=== PATIENT | female | born 1990 | race Caucasian/White ===

== ENCOUNTER 2021-12-10 14:02 | Emergency (ER) | payer OTHER ==
[2021-12-10 14:11] VITALS: PULSE 91; TEMP 99.1
[2021-12-10] MEDS ORDERED: SODIUM CHLORIDE 0.9% 1,000 ML IV STA (14:26)
[2021-12-10 14:47] LABS: HCT 41.5 % (34.0-46.0); HGB 13.5 gm/dL (11.4-16.0); RBC 4.67 m/uL (3.80-5.40); WBC 7.6 k/uL (3.8-10.6)
[2021-12-10 14:48] LABS: Basophils % (A) 0 %; Eosinophils # (A) 0.1 k/uL (0-0.7); Eosinophils % (A) 1 %; Lymphocytes % (A) 13 %; MCH 28.9 pg (25.0-35.0); MCHC 32.5 g/dL (31.0-37.0); MCV 88.9 fL (80.0-100.0); Monocytes # (A) 0.2 k/uL (0-1.0); Monocytes % (A) 3 %; Neutrophils # (A) 6.2 k/uL (1.3-7.7); Neutrophils % (A) 82 %; Platelet Count 227 k/uL (150-450)
[2021-12-10 14:56] LABS: ALT 14 U/L (4-34); AST 20 U/L (14-36); African American GFR (CKD) >90 (>60 ml/min/1.73 sqM); Albumin 4.4 g/dL (3.5-5.0); Alcohol <10 mg/dL; Alkaline Phosphatase 82 U/L (38-126); Anion Gap 12 mmol/L; Blood Urea Nitrogen 11 mg/dL (7-17); Calcium 9.3 mg/dL (8.4-10.2); Carbon Dioxide 24 mmol/L (22-30); Chloride 103 mmol/L (98-107); Glucose 106 mg/dL (74-99); Magnesium 2.1 mg/dL (1.6-2.3); Non-African American GFR(CKD) 86 (>60 ml/min/1.73 sqM); Potassium 4.2 mmol/L (3.5-5.1); Sodium 139 mmol/L (137-145); Total Bilirubin 0.2 mg/dL (0.2-1.3); Total Protein 7.6 g/dL (6.3-8.2)
--- NOTE | 2021-12-10 15:17 | ED ---
Seizure HPI - General Chief Complaint: Seizure Stated Complaint: seizure Time Seen by Provider: 12/10/21 14:15 Source: patient, EMS Mode of arrival: EMS Limitations: no limitations - History of Present Illness Initial Comments: Patient is a 31-year-old female history of epilepsy presenting for evaluation post seizure. Patient had a seizure lasting 2-3 minutes at work, her coworkers called EMS. EMS reported a postictal time of 15 minutes, her blood glucose was 115 throughout. This time patient is stating that she just feels very tired. She denies any headache, neck pain, vision or hearing changes, nausea, vomiting, chest pain, shortness of breath, palpitations, weakness, abdominal pain. - Related Data Home Medications Medication Instructions Recorded Confirmed levETIRAcetam [Keppra] 1,000 mg PO Q12HR 08/15/14 08/10/15 Previous Rx's Medication Instructions Recorded Ciprofloxacin HCl [Cipro] 500 mg PO Q12HR #14 tablet 08/10/15 Allergies Allergy/AdvReac Type Severity Reaction Status Date / Time No Known Allergies Allergy Verified 08/15/14 23:21 Review of Systems ROS Statement: Those systems with pertinent positive or pertinent negative responses have been documented in the HPI. ROS Other: All systems not noted in ROS Statement are negative. Past Medical History Past Medical History: Seizure Disorder Additional Past Medical History / Comment(s): ENCEPHELITIS History of Any Multi-Drug Resistant Organisms: None Reported Past Surgical History: No Surgical Hx Reported Additional Past Surgical History / Comment(s): TERMINATION OF Past Anesthesia/Blood Transfusion Reactions: No Reported Reaction Past Psychological History: No Psychological Hx Reported Smoking Status: Never smoker Past Alcohol Use History: Occasional Past Drug Use History: None Reported - Past Family History Mother Family Medical History: Hypertension General Exam Limitations: no limitations General appearance: alert, in no apparent distress Head exam: Present: atraumatic, normocephalic, normal inspection Eye exam: Present: normal appearance, PERRL, EOMI. Absent: scleral icterus, periorbital swelling Pupils: Present: normal accommodation ENT exam: Present: mucous membranes moist Expanded Mouth exam: Present: other (Tongue abrasion, no laceration) Respiratory exam: Present: normal lung sounds bilaterally. Absent: respiratory distress, wheezes, rales, rhonchi, stridor Cardiovascular Exam: Present: regular rate, normal rhythm, normal heart sounds. Absent: systolic murmur, diastolic murmur, rubs, gallop, clicks Extremities exam: Present: normal inspection, full ROM Neurological exam: Present: alert, oriented X3, CN II-XII intact Expanded Patient oriented to: Present: person, place, time Cranial nerves: EOM's Intact: Normal, Facial Sensation: Normal Cerebellar function: Finger to Nose: Normal, Heel to Isbell: Normal Sensory exam: Upper Extremity Light Touch: Normal, Lower Extremity Light Touch: Normal Motor strength exam: RUE: 5, LUE: 5, RLE: 5, LLE: 5 Eye Response: (4) open spontaneously Motor Response: (6) obeys commands Verbal Response: (5) oriented Brennen Total: 15 Psychiatric exam: Present: normal affect, normal mood Skin exam: Present: warm, dry, intact, normal color. Absent: rash Course Vital Signs 12/10/21 12/10/21 14:05 16:29 Temperature 99.1 F Pulse Rate 91 Respiratory 18 16 Rate Blood Pressure 122/75 117/72 O2 Sat by Pulse 97 Oximetry Medical Decision Making - Medical Decision Making Patient is a 31-year-old female with history of epilepsy presenting for assessment post seizure. Patient had a seizure work in her coworkers called EMS. This lasted approximately 2-3 minutes, with a 15 minute postictal period. On examination there are no focal neurological deficits. Lab work is WNL. Patient states that she feels tired at this time, otherwise asymptomatic. She appears stable for discharge with outpatient follow-up at this time. Keppra level was drawn, patient is instructed to follow-up with her neurologist in the next 1-2 days. Follow-up with PCP. Report back to ER with any new or worsening symptoms. Discussed return parameters and answered all questions. Patient conveyed verbal understanding and agreed to the plan. I discussed this case with my attending Dr. Cabrera. - Lab Data Result diagrams: 12/10/21 14:44 12/10/21 14:44 Lab Results 12/10/21 12/10/21 Range/Units 14:44 14:44 WBC 7.6 (3.8-10.6) k/uL RBC 4.67 (3.80-5.40) m/uL Hgb 13.5 (11.4-16.0) gm/dL Hct 41.5 (34.0-46.0) % MCV 88.9 (80.0-100.0) fL MCH 28.9 (25.0-35.0) pg MCHC 32.5 (31.0-37.0) g/dL RDW 12.0 (11.5-15.5) % Plt Count 227 (150-450) k/uL MPV 9.0 Neutrophils % 82 % Lymphocytes % 13 % Monocytes % 3 % Eosinophils % 1 % Basophils % 0 % Neutrophils # 6.2 (1.3-7.7) k/uL Lymphocytes # 1.0 (1.0-4.8) k/uL Monocytes # 0.2 (0-1.0) k/uL Eosinophils # 0.1 (0-0.7) k/uL Basophils # 0.0 (0-0.2) k/uL Sodium 139 (137-145) mmol/L Potassium 4.2 (3.5-5.1) mmol/L Chloride 103 (98-107) mmol/L Carbon Dioxide 24 (22-30) mmol/L Anion Gap 12 mmol/L BUN 11 (7-17) mg/dL Creatinine 0.89 (0.52-1.04) mg/dL Est GFR (CKD-EPI)AfAm >90 (>60 ml/min/1.73 sqM) Est GFR (CKD-EPI)NonAf 86 (>60 ml/min/1.73 sqM) Glucose 106 H (74-99) mg/dL Calcium 9.3 (8.4-10.2) mg/dL Magnesium 2.1 (1.6-2.3) mg/dL Total Bilirubin 0.2 (0.2-1.3) mg/dL AST 20 (14-36) U/L ALT 14 (4-34) U/L Alkaline Phosphatase 82 (38-126) U/L Total Protein 7.6 (6.3-8.2) g/dL Albumin 4.4 (3.5-5.0) g/dL Serum Alcohol <10 mg/dL - EKG Data EKG Comments: Sinus tachycardia with short UT interval. Rate of 102. UT interval 112. QRS duration 105. QT/QTC 386/445. No ischemic ST or T-wave changes Disposition Clinical Impression: Seizure disorder Disposition: HOME SELF-CARE Condition: Good Instructions (If sedation given, give patient instructions): Recurrent Seizures in Adults (ED) Additional Instructions: Follow-up with your PCP and neurologist. Report back to ER with any new or worsening symptoms. Is patient prescribed a controlled substance at d/c from ED?: No Referrals: None,Stated [Primary Care Provider] - 1-2 days Time of Disposition: 16:00
[2021-12-10 16:30] VITALS: BP 117/72; RESP 16
== END 2021-12-10 16:30 | disposition home or self-care (01) ==
LOC: EC 14:02
DX: G40.909 Epilepsy, unspecified, not intractable, without status epilepticus (principal); Z20.822 Contact with and (suspected) exposure to COVID-19
CPT/HCPCS: 36415; 80053; 80177; 80320; 83735; 85025; 93005; 96360; 99284

== ENCOUNTER 2022-01-11 12:03 | Observation (INO) | payer OTHER ==
[2022-01-11] MEDS ORDERED: MORPHINE SULFATE 4 MG/ML SYRINGE IVP STA (13:08)
[2022-01-11] MEDS ORDERED: ONDANSETRON 4 MG/2 ML VIAL IVP STA (13:08)
--- NOTE | 2022-01-11 13:39 | CT ---
EXAMINATION TYPE: CT brain [facility] DATE OF EXAM: 01/11/2022 COMPARISON: None HISTORY: Seizure, head injury CT DLP: 1715.[address] Brain: Unenhanced CT of the brain was performed. The ventricles, basal cisterns and sulci overlying the cerebral convexities demonstrate a normal appe arance. There is no evidence for intracranial hemorrhage or sulcal effacement. No mass effects are seen. If symptoms persist consider MRI. Osseous calvarium is intact. Right temporal scalp hematoma. IMPRESSION: No acute intracranial process CT Cervical Spine: Unenhanced CT of the cervical spine was performed with bone and soft tissue window settings submitted . Coronal and sagittal reconstruction is obtained. There is normal alignment and prevertebral soft tissues. I do not see evidence for fracture or sublu xation. No significant degenerative changes are present. The lung apices are clear. IMPRESSION: No evidence for acute fracture or subluxation of the cervical spine.
[2022-01-11 13:40] LABS: ALT 12 U/L (4-34); AST 20 U/L (14-36); African American GFR (CKD) >90 (>60 ml/min/1.73 sqM); Albumin 4.3 g/dL (3.5-5.0); Alkaline Phosphatase 78 U/L (38-126); Anion Gap 11 mmol/L; Blood Urea Nitrogen 11 mg/dL (7-17); Calcium 8.8 mg/dL (8.4-10.2); Carbon Dioxide 22 mmol/L (22-30); Chloride 104 mmol/L (98-107); Glucose 104 mg/dL (74-99); Non-African American GFR(CKD) >90 (>60 ml/min/1.73 sqM); Potassium 4.2 mmol/L (3.5-5.1); Sodium 137 mmol/L (137-145); Total Bilirubin 0.4 mg/dL (0.2-1.3); Total Protein 7.1 g/dL (6.3-8.2)
[2022-01-11 14:08] LABS: Basophils # (A) 0.1 k/uL (0-0.2); Basophils % (A) 0 %; Eosinophils # (A) 0.2 k/uL (0-0.7); Eosinophils % (A) 1 %; HCT 40.3 % (34.0-46.0); Lymphocytes # (A) 0.8 k/uL (1.0-4.8); Lymphocytes % (A) 6 %; MCH 28.6 pg (25.0-35.0); MCHC 32.4 g/dL (31.0-37.0); MCV 88.5 fL (80.0-100.0); Monocytes # (A) 0.3 k/uL (0-1.0); Monocytes % (A) 2 %; Neutrophils # (A) 11.9 k/uL (1.3-7.7); Neutrophils % (A) 89 %; Platelet Count 171 k/uL (150-450); RBC 4.55 m/uL (3.80-5.40); RDW 12.2 % (11.5-15.5); WBC 13.3 k/uL (3.8-10.6)
--- NOTE | 2022-01-11 14:26 | ED ---
Seizure HPI - General Chief Complaint: Seizure Stated Complaint: Seizure,head injury Time Seen by Provider: 01/11/22 12:17 Source: patient, EMS Mode of arrival: EMS Limitations: no limitations - History of Present Illness Initial Comments: Patient is a 31-year-old female with a past medical history of epilepsy who presents to the emergency department after seizure. Patient was at [facility] today when she had a seizure and collapsed onto the ground. The seizure lasted approximately 4 minutes. Seizure resolved without medication. Patient was brought into the hospital via ambulance. She does not recall the seizure. She remembers driving to [facility] this morning but does not recall any event after. Patient has pain on the right side of her head where she has a bump from head injury. Also reports nausea. Denies blurry vision, double vision, lightheadedness, dizziness, neck pain, back pain, chest pain, shortness of breath, abdominal pain, nausea, vomiting, burning with urination. Patient states she felt well this morning before the seizure. Takes Keppra twice a day for seizure. Unsure of dose. States she has been taking her medication as directed. States she normally has one or 2 seizures a year. Last seizure was last month. Sees a neurologist but cannot remember the name as the neurologist is somewhat new to her. - Related Data Home Medications Medication Instructions Recorded Confirmed Etonogestrel/Ethinyl Estradiol 1 ring VAGINAL QMONTHLY 01/11/22 01/11/22 [Nuvaring Vaginal Ring] levETIRAcetam [Keppra Xr] 500 mg PO BID 01/11/22 01/11/22 Previous Rx's Medication Instructions Recorded Ondansetron Odt [Zofran Odt] 4 mg PO Q8HR PRN #12 tab 01/11/22 Allergies Allergy/AdvReac Type Severity Reaction Status Date / Time No Known Allergies Allergy Verified 01/11/22 15:49 Review of Systems ROS Statement: Those systems with pertinent positive or pertinent negative responses have been documented in the HPI. ROS Other: All systems not noted in ROS Statement are negative. Past Medical History Past Medical History: Seizure Disorder Additional Past Medical History / Comment(s): ENCEPHELITIS History of Any Multi-Drug Resistant Organisms: None Reported Past Surgical History: No Surgical Hx Reported Additional Past Surgical History / Comment(s): TERMINATION OF Past Anesthesia/Blood Transfusion Reactions: No Reported Reaction Past Psychological History: No Psychological Hx Reported Smoking Status: Never smoker Past Alcohol Use History: Occasional Past Drug Use History: Marijuana - Past Family History Mother Family Medical History: Hypertension General Exam Limitations: no limitations General appearance: alert, in no apparent distress Head exam: Present: normocephalic, normal inspection (hematoma over right roman catholic). Absent: atraumatic Neck exam: Present: normal inspection, full ROM. Absent: tenderness Respiratory exam: Present: normal lung sounds bilaterally. Absent: respiratory distress, wheezes, rales, rhonchi, stridor Cardiovascular Exam: Present: regular rate, normal rhythm, normal heart sounds. Absent: systolic murmur, diastolic murmur, rubs, gallop, clicks Back exam: Present: normal inspection, full ROM. Absent: tenderness, paraspinal tenderness, vertebral tenderness Neurological exam: Present: alert, oriented X3, CN II-XII intact Psychiatric exam: Present: normal affect, normal mood Course Vital Signs 01/11/22 12:08 Temperature 97.9 F Pulse Rate 91 Respiratory 18 Rate Blood Pressure 124/78 O2 Sat by Pulse 99 Oximetry Medical Decision Making - Medical Decision Making This is a 31 year old female who presents after seizure. Patient well-appearing and in no apparent distress. Vital stable. Alert and oriented x 3. She has retrograde amnesia but otherwise does not show other signs of postictal state. Laboratory studies obtained. There is mild leukocytosis at 13.3, likely reactive. CT of the brain and C-spine without contrast was obtained which shows no acute process. Patient given Zofran, Compazine, and fluids. Patient observed in the emergency department for 3 hours and did not have further seizure-like activity. She did not have any vomiting. Patient reevaluated before discharge and besides nausea felt well. Upon discharge the nurse observed she going to another seizure. Patient sat down prior to seizure-like activity. She did not fall. Patient was given 2 mg of Ativan IM which resolved the seizure. Seizure lasted for approximately 1 minute. Patient sleeping after seizure. Vitals within acceptable limits. Case discussed with Dr. Silverman who accepts admission. Neurology is on consult. Patient likely needs epilepsy medication adjustments. Dr. Armendariz is my attending. - Lab Data Result diagrams: 01/11/22 13:58 01/11/22 13:00 Lab Results 01/11/22 01/11/22 01/11/22 Range/Units 13:00 13:00 13:58 WBC 13.3 H (3.8-10.6) k/uL RBC 4.55 (3.80-5.40) m/uL Hgb 13.0 (11.4-16.0) gm/dL Hct 40.3 (34.0-46.0) % MCV 88.5 (80.0-100.0) fL MCH 28.6 (25.0-35.0) pg MCHC 32.4 (31.0-37.0) g/dL RDW 12.2 (11.5-15.5) % Plt Count 171 (150-450) k/uL MPV 10.0 Neutrophils % 89 % Lymphocytes % 6 % Monocytes % 2 % Eosinophils % 1 % Basophils % 0 % Neutrophils # 11.9 H (1.3-7.7) k/uL Lymphocytes # 0.8 L (1.0-4.8) k/uL Monocytes # 0.3 (0-1.0) k/uL Eosinophils # 0.2 (0-0.7) k/uL Basophils # 0.1 (0-0.2) k/uL Sodium 137 (137-145) mmol/L Potassium 4.2 (3.5-5.1) mmol/L Chloride 104 (98-107) mmol/L Carbon Dioxide 22 (22-30) mmol/L Anion Gap 11 mmol/L BUN 11 (7-17) mg/dL Creatinine 0.78 (0.52-1.04) mg/dL Est GFR (CKD-EPI)AfAm >90 (>60 ml/min/1.73 sqM) Est GFR (CKD-EPI)NonAf >90 (>60 ml/min/1.73 sqM) Glucose 104 H (74-99) mg/dL Plasma Lactic Acid Chavez 1.2 (0.7-2.0) mmol/L Calcium 8.8 (8.4-10.2) mg/dL Total Bilirubin 0.4 (0.2-1.3) mg/dL AST 20 (14-36) U/L ALT 12 (4-34) U/L Alkaline Phosphatase 78 (38-126) U/L Total Protein 7.1 (6.3-8.2) g/dL Albumin 4.3 (3.5-5.0) g/dL Disposition Clinical Impression: Seizure, Hematoma, Headache Disposition: ADMITTED IP TO THIS [facility] Condition: Fair Instructions (If sedation given, give patient instructions): Hematoma (ED) Prescriptions: Ondansetron Odt [Zofran Odt] 4 mg PO Q8HR PRN #12 tab PRN Reason: Nausea Is patient prescribed a controlled substance at d/c from ED?: No Referrals: None,Stated [Primary Care Provider] - 1-2 days Time of Disposition: 14:28
[2022-01-11] MEDS ORDERED: levETIRAcetam 500 MG TAB PO STA (14:29)
[2022-01-11] MEDS ORDERED: PROCHLORPERAZINE INJ 10 MG/2 ML VIAL IVP STA (14:31)
[2022-01-11] MEDS: ACET/COD 300 MG/30 MG STARTER PACK 6 TAB BTL PO STA ×2 (14:45→16:46)
[2022-01-11] MEDS ORDERED: LORazepam 2 MG/ML INJ IM STA (15:01)
[2022-01-11] MEDS ORDERED: LORazepam 1 MG/0.5 ML VIAL IM STA (15:01)
[2022-01-11] MEDS ORDERED: NALOXONE 0.4 MG/ML 1 ML VIAL IV PRN (15:30)
[2022-01-11] MEDS: SODIUM CHLORIDE 0.9% 1,000 ML IV SCH (16:21)
--- NOTE | 2022-01-11 16:24 | P.HPIM ---
History of Present Illness H&P Date: 01/11/22 Chief Complaint: Seizure 31 years old lady with past medical history of seizure disorder on Keppra 500 mg twice a day presents to the emergency room after having seizure episodes this morning at her work. According to the witnesses thin lady had a seizure for about 40 minutes and felt to the ground had a hematoma on her right frontal head and was brought to the emergency room by EMS she was minimally postictal at that time she got Ativan and was about to be discharged home while she was walking she had another seizure for 1 minute and got 4 mg of Ativan, at time of evaluation she was drowsy stated having moderate headache 5 out of 10 in severity. states that she takes Keppra but not sure about the dose and he said that she follows up with [facility] and that has been some changes made to her dosage in the last few months. They deny having any nausea vomiting, diarrhea or constipation. No URI cough or shortness of breath. Review of Systems A 14 point review systems was assessed patient was only positive for those described in HPI Past Medical History Past Medical History: Seizure Disorder Additional Past Medical History / Comment(s): ENCEPHELITIS History of Any Multi-Drug Resistant Organisms: None Reported Past Surgical History: No Surgical Hx Reported Additional Past Surgical History / Comment(s): TERMINATION OF Past Anesthesia/Blood Transfusion Reactions: No Reported Reaction Past Psychological History: No Psychological Hx Reported Smoking Status: Never smoker Past Alcohol Use History: Occasional Past Drug Use History: Marijuana - Past Family History Mother Family Medical History: Hypertension Medications and Allergies Home Medications Medication Instructions Recorded Confirmed Type Etonogestrel/Ethinyl Estradiol 1 ring VAGINAL QMONTHLY 01/11/22 01/11/22 History [Nuvaring Vaginal Ring] Ondansetron Odt [Zofran Odt] 4 mg PO Q8HR PRN #12 tab 01/11/22 Rx levETIRAcetam [Keppra Xr] 500 mg PO BID 01/11/22 01/11/22 History Allergies Allergy/AdvReac Type Severity Reaction Status Date / Time No Known Allergies Allergy Verified 01/11/22 15:49 Physical Exam Vitals: Vital Signs Temp Pulse Resp BP Pulse Ox 01/11/22 12:08 97.9 F 91 18 124/78 99 Intake and Output 01/11/22 01/11/22 01/11/22 06:59 14:59 22:59 Other: Weight 90.718 kg General: [non toxic], [moderate distress], [appears at stated age] Derm: [warm], [dry] Head: [atraumatic], [normocephalic], [symmetric] Eyes: [EOMI], [no lid lag], [anicteric sclera] Mouth: [no lip lesion], [mucus membranes moist] Cardiovascular: [S1S2 reg], [no murmur], [positive posterior tibial pulse bilateral], Lungs: [CTA bilateral], [no rhonchi, no rales] , [no accessory muscle use] Abdominal: [soft], [ nontender to palpation], [no guarding], [no appreciable organomegaly] Ext: [no gross muscle atrophy], [no edema], [no contractures] Neuro: [ CN II-XI grossly intact], [no focal neuro deficits] Psych: [Alert], [drowsy], [appropriate affect] Results CBC & Chem 7: 01/11/22 13:58 01/11/22 13:00 Labs: Abnormal Lab Results - Last 24 Hours (Table) 01/11/22 01/11/22 Range/Units 13:00 13:58 WBC 13.3 H (3.8-10.6) k/uL Neutrophils # 11.9 H (1.3-7.7) k/uL Lymphocytes # 0.8 L (1.0-4.8) k/uL Glucose 104 H (74-99) mg/dL Assessment and Plan Assessment: #Seizure disorder Patient had 2 episodes of seizure this morning CT head was within normal limits Patient is on Keppra but unsure about the dose She stated that it has been changes to her dosage and the last few months No concern for infection at this point Neurology recommendation appreciated #Right temporal hematoma Secondary to seizure and fall CT head within normal limits We'll continue to monitor DVT Prophylaxis: SCDs, early ambulation PPI prophylaxis not needed Code status: Full code Anticipated length of stay: Greater than [address]: Home
[2022-01-11] MEDS ORDERED: LORazepam 1 MG/0.5 ML VIAL IV PRN (17:20)
[2022-01-11] MEDS: levETIRAcetam 500 MG TAB PO SCH (20:13)
[2022-01-12] MEDS: SODIUM CHLORIDE 0.9% 1,000 ML IV SCH ×2 (09:38→20:43)
[2022-01-12] MEDS: levETIRAcetam 500 MG TAB PO SCH ×2 (09:38→20:43)
[2022-01-12 12:43] LABS: Basophils # (A) 0.03 X 10*3/uL (0.00-0.10); Basophils % (A) 0.4 %; Eosinophils # (A) 0.01 X 10*3/uL (0.04-0.35); Eosinophils % (A) 0.1 %; HCT 38.1 % (37.2-46.3); HGB 12.4 g/dL (12.0-15.0); Immature Grans, Automated 0.3 %; Lymphocytes # (A) 0.97 X 10*3/uL (0.90-5.00); Lymphocytes % (A) 12.2 %; MCHC 32.5 g/dL (32.0-37.0); Monocytes # (A) 0.43 X 10*3/uL (0.20-1.00); Monocytes % (A) 5.4 %; NRBC Per 100 WBC 0 /100 WBCS (0.0-0.0); Neutrophils # (A) 6.49 X 10*3/uL (1.80-7.70); Neutrophils % (A) 81.6 %; Platelet Count 197 X 10*3/uL (140-440); RBC 4.28 X 10*6/uL (4.10-5.20); RDW 12.2 % (11.5-14.5); WBC 7.95 X 10*3/uL (4.50-10.00)
[2022-01-12 12:49] LABS: African American GFR (CKD) 96.1 (60.0-200.0); Albumin 4.1 g/dL (3.8-4.9); Albumin/Globulin Ratio 1.54 (1.60-3.17); Anion Gap 12.9 mmol/L (10.00-18.00); BUN/Creat Ratio 8.48 Ratio (12.00-20.00); Blood Urea Nitrogen 7.8 mg/dL (9.0-27.0); Calcium 8.9 mg/dL (8.7-10.3); Carbon Dioxide 23.1 mmol/L (20.0-27.5); Globulin 2.6 g/dL (1.6-3.3); Magnesium 2.3 mg/dL (1.5-2.4); Non-African American GFR(CKD) 82.9 (60.0-200.0); Phosphorus 2.8 mg/dL (2.4-5.1); Potassium 3.6 mmol/L (3.5-5.5); Total Bilirubin 0.4 mg/dL (0.30-1.20); Total Protein 6.7 g/dL (6.2-8.2)
--- NOTE | 2022-01-12 13:44 | P.PN ---
Subjective Progress Note Date: 01/12/22 The patient was seen this morning, no acute events overnight. No more seizures since yesterday Objective - Vital Signs Vital signs: Vital Signs Temp 98.4 F 01/12/22 11:58 Pulse 69 01/12/22 11:58 Resp 18 01/12/22 11:58 BP 114/72 01/12/22 11:58 Pulse Ox 98 01/12/22 11:58 FiO2 Intake & Output 01/11/22 01/12/22 01/12/22 18:59 06:59 18:59 Intake Total 180 0 296 Balance 180 0 296 Weight 90.718 kg Intake: Oral 180 0 296 Other: # Voids 2 - Exam General: [non toxic], [oriented], [appears at stated age] Derm: [warm], [dry] Head: Large hematoma covering the right thigh and right forehead area Eyes: [EOMI], [no lid lag], [anicteric sclera] Mouth: [no lip lesion], [mucus membranes moist] Cardiovascular: [S1S2 reg], [no murmur], [positive posterior tibial pulse bilateral], Lungs: [CTA bilateral], [no rhonchi, no rales] , [no accessory muscle use] Abdominal: [soft], [ nontender to palpation], [no guarding], [no appreciable organomegaly] Ext: [no gross muscle atrophy], [no edema], [no contractures] Neuro: [ CN II-XI grossly intact], [no focal neuro deficits] Psych: [Alert], [oriented, [appropriate affect] - Labs CBC & Chem 7: 01/12/22 09:07 01/12/22 09:07 Labs: Abnormal Lab Results - Last 24 Hours (Table) 01/11/22 01/12/22 01/12/22 Range/Units 13:58 09:07 09:07 WBC 13.3 H (3.8-10.6) k/uL MPV 13.0 H (9.5-12.2) fL Neutrophils # 11.9 H (1.3-7.7) k/uL Lymphocytes # 0.8 L (1.0-4.8) k/uL Eosinophils # 0.01 L (0.04-0.35) X 10*3/uL BUN 7.8 L (9.0-27.0) mg/dL BUN/Creatinine Ratio 8.48 L (12.00-20.00) Ratio Glucose 120 H (70-110) mg/dL Albumin/Globulin Ratio 1.54 L (1.60-3.17) g/dL Assessment and Plan Assessment: #Seizure disorder Patient had 2 episodes of seizure on the day of admission CT head was within normal limits Patient is on Keppra 500 twice a day She stated that it has been changes to her dosage and the last few months She was started at Keppra 1000 3 times a day No concern for infection at this point Neurology recommendation appreciated #Right forehead hematoma Secondary to seizure and fall CT head within normal limits We'll continue to monitor DVT Prophylaxis: SCDs, early ambulation PPI prophylaxis not needed Code status: Full code Anticipated length of stay: Greater than [address]: Home once cleared by neurology
[2022-01-13 04:23] VITALS: BP 103/65; PULSE 82; RESP 16; TEMP 98.2
[2022-01-13] MEDS: levETIRAcetam 500 MG TAB PO SCH (07:48)
[2022-01-13] MEDS: SODIUM CHLORIDE 0.9% 1,000 ML IV SCH (07:52)
--- NOTE | 2022-01-13 09:03 | P.CNNES ---
History of Present Illness Consult date: 01/13/22 Requesting physician: Tita Silverman Reason for Consult: seizure History of Present Illness: This is a 31-year-old woman with history of seizure, encephalitis who presented because of a seizure episode. 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 She does have a total tongue bite over the left lateral side. She does not recall as urinary or bowel incontinence. She does have history of seizures and is seems that her neurologist is tapering down her Keppra initially she was on Keppra 1500 and it was tapered down to 500 and that her seizure medications being tapered over the past at least one year. She has not had any further seizures since the seizure she had the bookstore this Thursday. She feels back to baseline. Denies any headache. 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 She stated that her last seizure prior to this one was a month ago but she did not inform her neurologist about that prior to that was at least a year ago. Again she stated that she is on Keppra 500 mg every 12 hours. Stop drinking alcohol about 2 months ago. Note the patient had seizure workup and she had the EEGs in the past. She has seen different neurologists in the past but stated she is currently seeing the the [place] [facility]. She denies of any family history of seizures. Some other workup in our facility consisted of: She is afebrile. CT of the head is reported as no acute intercranial process. Personally reviewed the CT event and there is no acute subacute ischemia, intracranial hemorrhage. CT cervical spine was reported as no evidence for acute fracture or subluxation of the cervical spine. Initial white blood cells 13.3 and they're repeated 7.95. Review of Systems Review of system: The 12 point system was reviewed and apparent positive and negative per HPI. Past Medical History Past Medical History: Seizure Disorder Additional Past Medical History / Comment(s): ENCEPHELITIS History of Any Multi-Drug Resistant Organisms: None Reported Past Surgical History: No Surgical Hx Reported Additional Past Surgical History / Comment(s): TERMINATION OF Past Anesthesia/Blood Transfusion Reactions: No Reported Reaction Past Psychological History: No Psychological Hx Reported Smoking Status: Never smoker Past Alcohol Use History: Occasional Past Drug Use History: Marijuana - Past Family History Mother Family Medical History: Hypertension Medications and Allergies Home Medications Medication Instructions Recorded Confirmed Type Etonogestrel/Ethinyl Estradiol 1 ring VAGINAL QMONTHLY 01/11/22 01/11/22 History [Nuvaring Vaginal Ring] Ondansetron Odt [Zofran Odt] 4 mg PO Q8HR PRN #12 tab 01/11/22 Rx levETIRAcetam [Keppra Xr] 500 mg PO BID 01/11/22 01/11/22 History Allergies Allergy/AdvReac Type Severity Reaction Status Date / Time No Known Allergies Allergy Verified 01/11/22 15:49 Physical Examination - Vital Signs Vital Signs: Vital Signs Temp Pulse Resp BP Pulse Ox 01/13/22 04:22 98.2 F 82 16 103/65 98 01/12/22 21:00 98.7 F 84 18 137/83 98 01/12/22 11:58 98.4 F 69 18 114/72 98 Intake and Output 01/12/22 01/13/22 01/13/22 22:59 06:59 14:59 Intake Total 296 240 Balance 296 240 Intake: Oral 296 240 Other: # Voids 2 1 GENERAL: The patient is lying in bed and is not in acute distress. HENT: Echymosis on the right lower periorbital (dark purplish in coloration). CHEST: The heart rate is regular rate rhythm. No murmurs to auscultation. LUNG: Clear to auscultation bilaterally no wheezing noted throughout. Not labored breathing. ABDOMEN/GI: Bowel sounds present in all 4 quadrants. No tenderness to palpation throughout. NEUROLOGICAL: Higher mental function: The patient is awake, alert, oriented to self, place and time. Patient is following commands. No aphasia and no neglect. Cranial nerves: The pupils are round, equal and reactive to light and accommodation. Visual craig are full to confrontation throughout. Extraocular movement is intact no nystagmus is noted. Facial sensation is normal to touch throughout. The facial strength is normal throughout. Hearing is normal bilaterally to hand rub. Tongue is midline and moved [id number] without any difficulty. Has small tongue bite over the left lateral side. No dysarthria is noted. Shoulder shrug is normal bilaterally. Motor: The strength is 5 over 5 throughout. Normal tone and bulk. Cerebellum: Normal finger to nose bilaterally. Sensation: Sensation is normal to touch throughout. Reflexes (right/left): 2+ throughout. Plantars are downgoing bilaterally. Results - Laboratory Findings CBC and BMP: 01/12/22 09:07 01/12/22 09:07 Abnormal Lab Findings: Abnormal Labs 01/11/22 01/11/22 01/12/22 13:00 13:58 09:07 WBC 13.3 H MPV 13.0 H Neutrophils # 11.9 H Lymphocytes # 0.8 L Eosinophils # 0.01 L BUN BUN/Creatinine Ratio Glucose 104 H Albumin/Globulin Ratio 01/12/22 09:07 WBC MPV Neutrophils # Lymphocytes # Eosinophils # BUN 7.8 L BUN/Creatinine Ratio 8.48 L Glucose 120 H Albumin/Globulin Ratio 1.54 L Assessment and Plan Assessment: Breakthrough seizure due low dose of seizure medication (medication being tappered down over the past at least one year) History of epilepsy 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 Plan: Her home seizure medication was increased at thousand milligrams every 12 hours and it's to be continued. If patient has any further seizure cooperative 5000 mg every 12 hours. No further neurological workup and she needs to follow-up with her neurologist for further evaluation as outpatient. Patient was notified that per the [place] DMV, she cannot drive for 6 month until seizure-free, avoid heights, avoids swimming unassisted or using heavy machinery From a neurology perspective the patient is clear for discharge. Again she is to follow-up with her neurologist as an outpatient within 1-2 weeks. Thank you for the consultation. Saad Tubbs M.D. Neuro-Hospitalist Time with Patient: Greater than 30
--- NOTE | 2022-01-13 14:07 | P.DS ---
Providers Date of admission: 01/11/22 15:46 Expected date of discharge: 01/13/22 Attending physician: Tita Silverman MD Consults: 01/12/22 21:57 Consult Physician Urgent Consulting Provider: Lorenzo Bill Consult Reason/Comments: epilepsy with recurrent seizures Do you want consulting provider notified?: Yes, Notify in am Primary care physician: Stated None Hospital Course: Admission diagnoses: Seizure Discharge diagnoses: Seizure disorder Right temporal hematoma status post fall caused by seizure 31 years old lady with past medical history of seizure disorder on Keppra 500 mg twice a day presents to the emergency room after having seizure episodes this morning at her work. According to the witnesses thin lady had a seizure for about 40 minutes and felt to the ground had a hematoma on her right frontal head and was brought to the emergency room by EMS she was minimally postictal at that time she got Ativan and was about to be discharged home while she was walking she had another seizure for 1 minute and got 4 mg of Ativan, at time of evaluation she was drowsy stated having moderate headache 5 out of 10 in severity. states that she takes Keppra but not sure about the dose and he said that she follows up with [facility] and that has been some changes made to her dosage in the last few months. They deny having any nausea vomiting, diarrhea or constipation. No URI cough or shortness of breath. Physical: General: [non toxic], [no distress], [appears at stated age] Derm: [warm], [dry] Head: [atraumatic], [normocephalic], [symmetric] Eyes: [EOMI], [no lid lag], [anicteric sclera] Mouth: [no lip lesion], [mucus membranes moist] Cardiovascular: [S1S2 reg], [no murmur], [positive posterior tibial pulse bilateral], Lungs: [CTA bilateral], [no rhonchi, no rales] , [no accessory muscle use] Abdominal: [soft], [ nontender to palpation], [no guarding], [no appreciable organomegaly] Ext: [no gross muscle atrophy], [no edema], [no contractures] Neuro: [ CN II-XI grossly intact], [no focal neuro deficits] Psych: [Alert], [oriented], [appropriate affect] Clinical course: #Seizure disorder Patient had 2 episodes of seizure on the day of admission CT head was within normal limits Patient's Keppra increased to 1000 mg by mouth twice a day Neurology followed #Right forehead hematoma Secondary to seizure and fall CT head within normal limits Disposition: Home Activity: As tolerated Diet: Regular Condition: Fair Follow-up with PCP in 3-7 days Follow-up with neurology in 1-2 weeks Plan - Discharge Summary Discharge Rx Participant: Yes New Discharge Prescriptions: New Ondansetron Odt [Zofran Odt] 4 mg PO Q8HR PRN #12 tab PRN Reason: Nausea levETIRAcetam [Keppra] 1,000 mg PO Q12HR #60 tab Continue Etonogestrel/Ethinyl Estradiol [Nuvaring Vaginal Ring] 1 ring VAGINAL QMONTHLY Discontinued levETIRAcetam [Keppra Xr] 500 mg PO BID Discharge Medication List Etonogestrel/Ethinyl Estradiol [Nuvaring Vaginal Ring] 1 ring VAGINAL QMONTHLY 01/11/22 [History] Ondansetron Odt [Zofran Odt] 4 mg PO Q8HR PRN #12 tab 01/11/22 [Rx] levETIRAcetam [Keppra] 1,000 mg PO Q12HR #60 tab 01/13/22 [Rx] Follow up Appointment(s)/Referral(s): None,Stated [Primary Care Provider] - 1-2 days Patient Instructions/Handouts: Ondansetron (By mouth), Levetiracetam (By mouth), Recurrent Seizures in Adults (DC), Hematoma (ED) Activity/Diet/Wound Care/Special Instructions: Follow up with your neurologist in 1-2 weeks - continue Keppra 1000mg every 12 hours. Discharge Disposition: HOME SELF-CARE
== END 2022-01-13 13:30 | disposition home or self-care (01) ==
LOC: EC 12:03 → INTOOBSV 15:46 → 5NMEDONC 15:46 → UNDODISIN 01-13 13:30
PROVIDERS: ADMIT Internal Medicine; ATTEND Internal Medicine
DX: G40.909 Epilepsy, unspecified, not intractable, without status epilepticus (principal); S00.83XA Contusion of other part of head, initial encounter; D72.829 Elevated white blood cell count, unspecified; W18.30XA Fall on same level, unspecified, initial encounter; Z79.899 Other long term (current) drug therapy; Z87.59 Personal history of other complications of pregnancy, childbirth and the puerperium; Z86.61 Personal history of infections of the central nervous system; Z82.49 Family history of ischemic heart disease and other diseases of the circulatory system
CPT/HCPCS: 96361; 96372; 96374; 96375; 99285; 36415; 93005; 80053 ×2; 80177; 83605; 83735; 84100; 85025 ×2; 72125; 70450; G0378 ×3; J2060; J2270; J0780; J2405

== ENCOUNTER 2022-08-21 17:49 | Observation (INO) | payer OTHER ==
[2022-08-21] MEDS ORDERED: SODIUM CHLORIDE 0.9% 1,000 ML IV STA (18:38)
[2022-08-21] MEDS ORDERED: HYDROmorphone 0.5 MG/0.5 ML SYRINGE IVP STA (18:42)
--- NOTE | 2022-08-21 19:05 | ED ---
General Adult HPI - General Chief complaint: Seizure Stated complaint: Seizure Time Seen by Provider: 08/21/22 18:39 Source: patient, EMS, RN notes reviewed, old records reviewed Mode of arrival: EMS Limitations: no limitations - History of Present Illness Initial comments: 31-year-old female presenting for evaluation of seizure, known seizure disorder. Patient had seizure resulting in left parietal head trauma. Patient was postictal during transport to EMS. She is alert upon arrival. She has been compliant with her medications. She does complain of headache. - Related Data Home Medications Medication Instructions Recorded Confirmed Etonogestrel/Ethinyl Estradiol 1 ring VAGINAL QMONTHLY 01/11/22 01/11/22 [Nuvaring Vaginal Ring] Previous Rx's Medication Instructions Recorded Ondansetron Odt [Zofran Odt] 4 mg PO Q8HR PRN #12 tab 01/11/22 levETIRAcetam [Keppra] 1,000 mg PO Q12HR #60 tab 01/13/22 Allergies Allergy/AdvReac Type Severity Reaction Status Date / Time No Known Allergies Allergy Verified 08/21/22 18:10 Review of Systems ROS Statement: Those systems with pertinent positive or pertinent negative responses have been documented in the HPI. ROS Other: All systems not noted in ROS Statement are negative. Past Medical History Past Medical History: Seizure Disorder Additional Past Medical History / Comment(s): encephalitis in 2010 History of Any Multi-Drug Resistant Organisms: None Reported Past Surgical History: No Surgical Hx Reported Additional Past Surgical History / Comment(s): TERMINATION OF Past Anesthesia/Blood Transfusion Reactions: No Reported Reaction Past Psychological History: Anxiety Smoking Status: Never smoker Past Alcohol Use History: None Reported Past Drug Use History: Marijuana - Past Family History Mother Family Medical History: Hypertension General Exam Limitations: no limitations General appearance: alert, in no apparent distress Head exam: Present: other (Parietal scalp laceration left side, and large hematoma) Eye exam: Present: PERRL Neck exam: Present: normal inspection. Absent: tenderness, meningismus Cardiovascular Exam: Present: regular rate, normal rhythm GI/Abdominal exam: Present: soft. Absent: distended, tenderness Extremities exam: Present: normal inspection, normal capillary refill. Absent: pedal edema Neurological exam: Present: alert, oriented X3, CN II-XII intact. Absent: motor sensory deficit Psychiatric exam: Present: normal affect, normal mood Skin exam: Present: warm, dry, intact. Absent: cyanosis, diaphoretic Course Vital Signs 08/21/22 08/21/22 18:03 19:46 Temperature 97.9 F Pulse Rate 95 94 Respiratory 18 18 Rate Blood Pressure 129/78 126/77 O2 Sat by Pulse 100 100 Oximetry EKG Findings - EKG Comments: EKG Findings:: Sinus rhythm, low voltage, rate of 74, MN interval 138, QRS duration 97, QTC 4:[address] segment elevation. Procedures - Laceration Laceration #1 Consent Obtained: verbal consent Indication: laceration Site: scalp Size (cm): 2 Description: linear Pre-repair: wound explored, irrigated extensively Type of Sutures: other (christian) Number of Sutures: 3 Technique: simple, interrupted Medical Decision Making - Medical Decision Making Was pt. sent in by a medical professional or institution (ARABELLA Mcdermott, ENGINEER TECHNICIAN, urgent care, hospital, or [facility]...) When possible be specific @ -No Did you speak to anyone other than the patient for history (EMS, parent, family, police, friend...)? What history was obtained from this source @ -No Did you review nursing and triage notes (agree or disagree)? Why? @ -I reviewed and agree with nursing and triage notes Were old charts reviewed (outside hosp., previous admission, EMS record, old EKG, old radiological studies, urgent care reports/EKG's, [facility] records)? Report findings @ -No old charts were reviewed Differential Diagnosis (chest pain, altered mental status, abdominal pain women, abdominal pain men, vaginal bleeding, weakness, fever, dyspnea, syncope, headache, dizziness, GI bleed, back pain, seizure, CVA, palpatations, mental h ealth, musculoskeletal)? @ Differential Seizure: Recurrent seizure disorder, febrile seizure, alcohol withdrawal, stimulants, meningitis, encephalitis, intercranial hemorrhage, intracranial tumor, stroke, eclampsia, thyrotoxicosis, hypocalcemia, hyponatremia, hypernatremia, hypo magnesemia, psychogenic, this is not meant to be an all-inclusive list. EKG interpreted by me (3pts min.). @ -As above CT interpreted by me (1pt min.). @ Scalp hematoma, no intracranial intracranial hemorrhage, no fracture subluxation U/S interpreted by me (1pt. min.). @ -None done What testing was considered but not performed or refused? (CT, X-rays, U/S, labs)? Why? @ -None What meds were considered but not given or refused? Why? @ -None Did you discuss the management of the patient with other professionals (professionals i.e. , PA, ENGINEER TECHNICIAN, lab, RT, psych nurse, social contact worker, dowel inspector, teacher, biosecurity officer, bottle caser)? Give summary @ -[Dr. Lucas Was smoking cessation discussed for >3mins.? @ -No Was critical care preformed (if so, how long)? @ -No Were there social determinants of health that impacted care today? How? (Homelessness, low income, unemployed, alcoholism, drug addiction, transportation, low edu. Level, literacy, decrease access to med. care, nursing home, rehab)? @ -No Was there de-escalation of care discussed even if they declined (Discuss DNR or withdrawal of care, Hospice)? DNR status @ -No What co-morbidities impacted this encounter? (DM, HTN, Smoking, COPD, CAD, Ca ncer, CVA, ARF, Chemo, Hep., AIDS, mental health diagnosis, sleep apnea, morbid obesity)? @ -Seizure disorder Was patient admitted / discharged? Hospital course, mention meds given and route, prescriptions, significant lab abnormalities, going to OR and other pe rtinent info. @ 21-year-old female with seizure at home with head injury. No intracranial abnormality. Patient had hematoma and laceration which was repaired in the emergency department. Normal laboratory testing. She's been compliant with her medications. She does have witnessed tonic-clonic seizure while still in the emergency department and will require admission. She's given Ativan and given 1500 mg of Keppra. She'll be admitted to [facility] group with neurology on consult. Undiagnosed new problem with uncertain prognosis? @ -No Drug Therapy requiring intensive monitoring for toxicity (Heparin, Nitro, Insulin, Cardizem)? @ -No Were any procedures done? @ -No Diagnosis/symptom? @ -Seizure Acute, or Chronic, or Acute on Chronic? @ Acute Uncomplicated (without systemic symptoms) or Complicated (systemic symptoms)? @ -default Side effects of treatment? @ -No Exacerbation, Progression, or Severe Exacerbation? @ -No Poses a threat to life or bodily function? How? (Chest pain, [place], [place], pneumonia, PE, COPD, DKA, ARF, appy, cholecystitis, CVA, Diverticulitis, Homicidal, Suicidal, threat to staff... and all critical care pts) @ Yes, seizure, coma, - Lab Data Result diagrams: 08/21/22 18:50 08/21/22 18:50 Lab Results 08/21/22 08/21/22 Range/Units 18:50 18:50 WBC 7.3 (3.8-10.6) k/uL RBC 4.45 (3.80-5.40) m/uL Hgb 12.7 (11.4-16.0) gm/dL Hct 39.9 (34.0-46.0) % MCV 89.6 (80.0-100.0) fL MCH 28.4 (25.0-35.0) pg MCHC 31.7 (31.0-37.0) g/dL RDW 12.3 (11.5-15.5) % Plt Count 183 (150-450) k/uL MPV 10.0 Neutrophils % 73 % Lymphocytes % 20 % Monocytes % 4 % Eosinophils % 1 % Basophils % 0 % Neutrophils # 5.3 (1.3-7.7) k/uL Lymphocytes # 1.5 (1.0-4.8) k/uL Monocytes # 0.3 (0-1.0) k/uL Eosinophils # 0.1 (0-0.7) k/uL Basophils # 0.0 (0-0.2) k/uL Sodium 138 (137-145) mmol/L Potassium 3.7 (3.5-5.1) mmol/L Chloride 102 (98-107) mmol/L Carbon Dioxide 23 (22-30) mmol/L Anion Gap 13 mmol/L BUN 14 (7-17) mg/dL Creatinine 0.83 (0.52-1.04) mg/dL Est GFR (CKD-EPI)AfAm >90 (>60 ml/min/1.73 sqM) Est GFR (CKD-EPI)NonAf >90 (>60 ml/min/1.73 sqM) Glucose 103 H (74-99) mg/dL Calcium 8.5 (8.4-10.2) mg/dL Magnesium 2.1 (1.6-2.3) mg/dL Total Bilirubin 0.2 (0.2-1.3) mg/dL AST 21 (14-36) U/L ALT 18 (4-34) U/L Alkaline Phosphatase 62 (38-126) U/L Total Protein 6.9 (6.3-8.2) g/dL Albumin 3.8 (3.5-5.0) g/dL Disposition Clinical Impression: Status epilepticus, Generalized seizure Disposition: ADMITTED IP TO THIS [facility] Condition: Stable Instructions (If sedation given, give patient instructions): Seizure/Epilepsy Discharge Instructions & Follow-Up Is patient prescribed a controlled substance at d/c from ED?: No Referrals: Stephen Archer MD [Primary Care Provider] - 1-2 days Time of Disposition: 20:35
--- NOTE | 2022-08-21 19:26 | CT ---
EXAMINATION TYPE: CT brain cspine wo con CT DLP: 1382.7 mGycm, Automated exposure control for dose reduction was used. DATE OF EXAM: 08/21/2022 7:08 PM COMPARISON: 01/11/2022. CLINICAL INDICATION:Female, 31 years old with history of trauma; seizure TECHNIQUE: Brain: Multiple axial CT images of the brain were obtained without IV contrast. Cspine: Axial CT images from the skull base to the inferior aspect of T2 we obtained without intraven ous contrast. Coronal and sagittal reformatted images were also reviewed. FINDINGS: Brain: Extra-axial spaces: No abnormal extra-axial fluid collections. Ventricular system: Within normal limits Cerebral parenchyma: No acute intraparenchymal hemorrhage or mass effect. The merritt-white junction is well differentiated. Cerebellum: Unremarkable. Mass effect: No evidence of midline shift. Intracranial vasculature: unremarkable Soft tissues: Left lateral skull subcutaneous hematoma. Measuring 4.8 x 0.9 cm. Skin laceration also present. Calvarium/osseous structures: No depressed skull fracture. Paranasal sinuses and mastoid air cells: Clear. Visualized orbits: Orbital contents are intact. Cervical spine: Fracture: None. Osseous structures: Unremarkable Vertebral alignment: Within normal limits. Spinal canal/Neural Foramina: No evidence of significant spinal canal narrowing. No evidence for sign ificant neural foraminal stenosis. Neck soft tissues: Prevertebral soft tissues are within normal limits. Other: The airway is patent. The lung apices are clear. IMPRESSION: 1. No acute intracranial process. 2. Left scalp hematoma is skin laceration. No evidence of fracture. 3. No evidence of cervical spine fracture.
[2022-08-21 19:45] LABS: Basophils % (A) 0 %; Eosinophils # (A) 0.1 k/uL (0-0.7); Eosinophils % (A) 1 %; HCT 39.9 % (34.0-46.0); HGB 12.7 gm/dL (11.4-16.0); Lymphocytes # (A) 1.5 k/uL (1.0-4.8); Lymphocytes % (A) 20 %; MCH 28.4 pg (25.0-35.0); MCHC 31.7 g/dL (31.0-37.0); MCV 89.6 fL (80.0-100.0); Monocytes # (A) 0.3 k/uL (0-1.0); Monocytes % (A) 4 %; Neutrophils # (A) 5.3 k/uL (1.3-7.7); Neutrophils % (A) 73 %; Platelet Count 183 k/uL (150-450); RBC 4.45 m/uL (3.80-5.40); RDW 12.3 % (11.5-15.5); WBC 7.3 k/uL (3.8-10.6)
[2022-08-21 20:26] LABS: ALT 18 U/L (4-34); AST 21 U/L (14-36); African American GFR (CKD) >90 (>60 ml/min/1.73 sqM); Albumin 3.8 g/dL (3.5-5.0); Alkaline Phosphatase 62 U/L (38-126); Anion Gap 13 mmol/L; Blood Urea Nitrogen 14 mg/dL (7-17); Calcium 8.5 mg/dL (8.4-10.2); Carbon Dioxide 23 mmol/L (22-30); Chloride 102 mmol/L (98-107); Glucose 103 mg/dL (74-99); Magnesium 2.1 mg/dL (1.6-2.3); Non-African American GFR(CKD) >90 (>60 ml/min/1.73 sqM); Potassium 3.7 mmol/L (3.5-5.1); Sodium 138 mmol/L (137-145); Total Bilirubin 0.2 mg/dL (0.2-1.3); Total Protein 6.9 g/dL (6.3-8.2)
[2022-08-21] MEDS ORDERED: LORazepam 2 MG/ML INJ IV STA (20:29)
[2022-08-21] MEDS ORDERED: levETIRAcetam IV 1,500 MG in SODIUM CHLORIDE 0.9% 250 ML IVPB ONE (20:29)
[2022-08-21] MEDS ORDERED: ACETAMINOPHEN TAB 325 MG TAB PO PRN (20:32)
[2022-08-21] MEDS ORDERED: NALOXONE 0.4 MG/ML 1 ML VIAL IV PRN (20:32)
[2022-08-21] MEDS: SODIUM CHLORIDE 0.9% 1,000 ML IV SCH (20:39)
[2022-08-21] MEDS ORDERED: levETIRAcetam IV 500 MG/5 ML VIAL IVP STA (20:47)
[2022-08-22 00:19] VITALS: RESP 16
--- NOTE | 2022-08-22 03:00 | P.HPIM ---
History of Present Illness H&P Date: 08/21/22 Chief Complaint: seizure 31 year old female with seizure disorder patient was at work , when she felt an aura and then had a seizure epiisode, resulted in hitting her head against a piece of furniture and resulted in scalp laceration over the left parietal region. she was brought to the ED from work. then while in the ED she had another episode of seizure, and was briefly post ictal after that. patient also lost bladder control. she denies any fever, chills, URI symptoms , abd pain , chest pain , changes in bowel or urinary habits. denies any recent changes in her medications. she claims to be compliant with her meds her most recent breakthrough seizure was back in Fall 2021. when her neurologist tried to wean her off her meds. she currently feels fine , with no new focal neuro deficits. Review of Systems Pertinent positives as noted in HPI. All other systems were reviewed and are negative Past Medical History Past Medical History: Seizure Disorder Additional Past Medical History / Comment(s): encephalitis in 2010 History of Any Multi-Drug Resistant Organisms: None Reported Past Surgical History: No Surgical Hx Reported Additional Past Surgical History / Comment(s): TERMINATION OF Past Anesthesia/Blood Transfusion Reactions: No Reported Reaction Past Psychological History: Anxiety Smoking Status: Never smoker Past Alcohol Use History: None Reported Past Drug Use History: Marijuana - Past Family History Mother Family Medical History: Hypertension Occupational Seizure History - Commerical Driving History Currently uses [employer] for employment (including self-employed).: No 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 [employer] Medications and Allergies Home Medications Medication Instructions Recorded Confirmed Type Etonogestrel/Ethinyl Estradiol 1 ring VAGINAL DIRECTED 01/11/22 08/21/22 History [Nuvaring Vaginal Ring] levETIRAcetam [Keppra] 1,000 mg PO BID 08/21/22 08/21/22 History Allergies Allergy/AdvReac Type Severity Reaction Status Date / Time No Known Allergies Allergy Verified 08/21/22 21:01 Physical Exam Vitals: Vital Signs Temp Pulse Resp BP Pulse Ox 08/22/22 01:17 98 16 121/67 100 08/22/22 00:18 83 16 110/67 92 L 08/21/22 23:11 98.1 F 103 H 19 112/67 97 08/21/22 22:37 84 18 111/66 96 08/21/22 22:01 94 20 114/63 96 08/21/22 21:02 101 H 18 120/62 96 08/21/22 20:32 92 22 119/61 96 08/21/22 19:46 94 18 126/77 100 08/21/22 18:03 97.9 F 95 18 129/78 100 Intake and Output 08/21/22 08/21/22 08/22/22 14:59 22:59 06:59 Other: Weight 81.193 kg Constitutional: No acute distress, conversant, pleasant Eyes: Anicteric sclerae, moist conjunctiva, Pupils equal round reactive to light ENMT: NC/ small laceration with christian over the left parietal region Oropharynx clear, no erythema, or exudates Neck: Supple, no masses, or JVD No carotid bruits No thyromegaly Lungs: Clear to auscultation Clear to percussion Normal respiratory effort, no accessory muscle use Cardiovascular: Heart regular in rate and rhythm, No murmurs, gallops, or rubs No peripheral edema Abdominal: Soft No tenderness to deep palpation no guarding, rebound or rigidity Abdomen moving with respiration Normoactive bowel sounds No hepatomegaly, No splenomegaly No palpable mass No abdominal wall hernia noted Skin: Normal temperature, tone, texture, turgor No induration No subcutaneous nodules No rash, lesions No ulcers Extremities: No digital cyanosis No clubbing Pedal pulses intact and symmetrical Radial pulses intact and symmetrical No calf tenderness Psychiatric: Alert and oriented to person, place and time Appropriate affect fair judgement Neuro Muscles Strength 5/5 in all 4 extremities Sensation to light touch grossly present throughout Cranial nerves II-XII grossly intact Lymphatics: no palpable cervical or supraclavicular lymph nodes Results CBC & Chem 7: 08/21/22 18:50 08/21/22 18:50 Labs: Abnormal Lab Results - Last 24 Hours (Table) 08/21/22 Range/Units 18:50 Glucose 103 H (74-99) mg/dL Assessment and Plan Assessment: 30 year old female with epilepsy , presented due to breakthrough seizure, I discussed the case with ED doc, patient had another episode in the ED adn was briefly post ictal , I accepted the admission for close neuro monitoring and neuro eval with anticipated length of stay < 2 midn[address] breakthrough seizure [facility] continue keppra 1000 mg bid fall precautions neuro checks neuro consult blood work reviewed and unremarkable WBC 7.3 Hgb 12.7 BUN [address] head and neck , no acute intracranial pathology , showed left scalp hematoma full code DVT PPX mechanical
[2022-08-22] MEDS ORDERED: levETIRAcetam 500 MG TAB PO SCH ×2 (09:00→21:00)
[2022-08-22 09:44] VITALS: BP 126/72; PULSE 90; TEMP 98.5
[2022-08-22] MEDS: SODIUM CHLORIDE 0.9% 1,000 ML IV SCH (10:00)
[2022-08-22] MEDS ORDERED: levETIRAcetam 500 MG TAB PO STA (11:18)
--- NOTE | 2022-08-22 11:44 | P.DS ---
Providers Date of admission: 08/21/22 20:32 Attending physician: Duncan Wilson MD Consults: 08/21/22 20:32 Consult Physician Routine Consulting Provider: Lorenzo Bill Consult Reason/Comments: Seizures Do you want consulting provider notified?: Yes Primary care physician: Stephen Archer Hospital Course: Discharge Diagnosis: Breakthrough seizure History of seizure disorder Hospital Course: Patient is a 31-year-old female with a past medical history seizure disorder who presented to the ED with breakthrough seizure. Patient was loaded with Keppra in the ED. Patient was seen by neurology who increased her Keppra dose to 1500 mg twice a day. Patient did not have any further episodes of seizure while she was hospitalized. Patient seen and examined at bedside on 08/22/2022.[] Vital signs reviewed and stable. General: [non toxic], [no distress], [appears at stated age] Derm: [warm], [dry] Head: [atraumatic], [normocephalic], [symmetric] Eyes: [EOMI], [no lid lag], [anicteric sclera] Mouth: [no lip lesion], [mucus membranes moist] Cardiovascular: [S1S2 reg], [no murmur], [positive posterior tibial pulse bilateral], Lungs: [CTA bilateral], [no rhonchi, no rales] , [no accessory muscle use] Abdominal: [soft], [ nontender to palpation], [no guarding], [no appreciable organomegaly] Ext: [no gross muscle atrophy], [no edema], [no contractures] Neuro: [ CN II-XI grossly intact], [no focal neuro deficits] Psych: [Alert], [oriented], [appropriate affect] A total of [33] minutes of time were spent preparing this complex discharge summary . Patient Condition at Discharge: Stable Plan - Discharge Summary New Discharge Prescriptions: New levETIRAcetam [Keppra] 1,500 mg PO BID 30 Days #180 tab Continue Etonogestrel/Ethinyl Estradiol [Nuvaring Vaginal Ring] 1 ring VAGINAL DIRECTED Discontinued levETIRAcetam [Keppra] 1,000 mg PO BID Discharge Medication List Etonogestrel/Ethinyl Estradiol [Nuvaring Vaginal Ring] 1 ring VAGINAL DIRECTED 01/11/22 [History] levETIRAcetam [Keppra] 1,500 mg PO BID 30 Days #180 tab 08/22/22 [Rx] Follow up Appointment(s)/Referral(s): Stephen Archer MD [Primary Care Provider] - 1-2 days Patient Instructions/Handouts: Seizure/Epilepsy Discharge Instructions & Follow-Up Discharge Disposition: HOME SELF-CARE
--- NOTE | 2022-08-22 22:26 | P.CNNES ---
History of Present Illness Consult date: 08/22/22 Requesting physician: Jw Lundberg Reason for Consult: Recurrent seizures History of Present Illness: Patient is a 31-year-old female with history of epilepsy, came to the hospital by ambulance yesterday at 5:49 PM for breakthrough seizure. Patient states that she started having seizures since 2010. At that time she was diagnosed with encephalitis. She has been having breakthrough seizure almost once a year. She is currently on Keppra 1000 mg twice a day. She states that she may miss sometimes morning dose of Keppra. She is not "perfect" in taking her medication. She thinks she may have missed the morning dose on the day of her seizure. She had a seizure at work. Patient was brought to the hospital. Just before she was being released, she had a second seizure. Patient apparently did bite right side of her tongue, also lost control of urine with this seizure. As per EMS flow sheet, when they arrived, patient was in care of fire department. They state that the patient is postictal and altered from a seizure. Patient had a 2 cm laceration to her left forehead that has been bandaged earlier. Patient was able to answer some questions and states that she does have history of seizure. Her blood pressure at the scene was 125/82, pulse rate 107, respirations 16, saturation 95%. Blood sugar 131. CBC, CMP normal. CT head showed no acute process. Left scalp hematoma. No fracture. CT of the cervical spine normal. EKG shows sinus rhythm. Patient had an EEG performed 01/15/2016, which reported mild occasional intermittent slowing noted in the left hemisphere more so in the left temporal region which are transient, less than 1 second and can be completed by sharp waves suggesting degree of subcortical and cortical disturbance and consistent with some seizure potential. Patient has been seen by Dr. Tubbs on 01/13/2022, when she was tried to be weaned off her seizure medication and had a breakthrough seizure. Patient denies any tobacco, alcohol. She does use CBD gummies. Denies any family history of seizures. She does not drink excessive amounts of caffeine. Ivan farley drinks Mountain Dew. She lives with her in an apartment. Review of Systems Constitutional: Denies chills, Denies fever Eyes: denies blurred vision, denies pain Ears: deny: decreased hearing, ear discharge Ears, nose, mouth and throat: Reports mouth pain, Denies headache, Denies sore throat Cardiovascular: Denies chest pain, Denies shortness of breath Respiratory: Denies cough, Denies excessive sputum, Denies hemoptysis Gastrointestinal: Denies abdominal pain, Denies diarrhea, Denies nausea, Denies vomiting Genitourinary: Denies dysuria, Denies hematuria Musculoskeletal: Denies fractures, Denies frequent falls, Denies myalgias Integumentary: Denies pruritus, Denies rash Neurological: Reports as per HPI Psychiatric: Denies anxiety, Denies hallucinations, Denies paranoia Endocrine: Denies fatigue, Denies weight change Past Medical History Past Medical History: Seizure Disorder Additional Past Medical History / Comment(s): encephalitis in 2010 History of Any Multi-Drug Resistant Organisms: None Reported Past Surgical History: No Surgical Hx Reported Additional Past Surgical History / Comment(s): TERMINATION OF Past Anesthesia/Blood Transfusion Reactions: No Reported Reaction Past Psychological History: Anxiety Smoking Status: Never smoker Past Alcohol Use History: None Reported Past Drug Use History: Marijuana - Past Family History Mother Family Medical History: Hypertension Medications and Allergies Home Medications Medication Instructions Recorded Confirmed Type Etonogestrel/Ethinyl Estradiol 1 ring VAGINAL DIRECTED 01/11/22 08/21/22 Hist ory [Nuvaring Vaginal Ring] levETIRAcetam [Keppra] 1,500 mg PO BID 30 Days #180 tab 08/22/22 Rx Allergies Allergy/AdvReac Type Severity Reaction Status Date / Time No Known Allergies Allergy Verified 08/21/22 21:01 Physical Examination - Vital Signs Vital Signs: Vital Signs Temp Pulse Pulse Resp BP BP Pulse Ox 08/22/22 08:15 98.5 F 90 16 126/72 100 08/22/22 06:11 64 16 111/66 97 08/22/22 01:17 98 16 121/67 100 08/22/22 00:18 83 16 110/67 92 L 08/21/22 23:11 98.1 F 103 H 19 112/67 97 08/21/22 22:37 84 18 111/66 96 08/21/22 22:01 94 20 114/63 96 08/21/22 21:02 101 H 18 120/62 96 08/21/22 20:32 92 22 119/61 96 08/21/22 19:46 94 18 126/77 100 08/21/22 18:03 97.9 F 95 18 129/78 100 Intake and Output 08/21/22 08/22/22 08/22/22 22:59 06:59 14:59 Intake Total 240 Balance 240 Intake: Oral 240 Other: Weight 81.193 kg 81.193 kg Patient is a young female, very pleasant, in no acute distress. Patient is alert awake oriented to time place and person. Speech and language functions are normal. Patient can name and repeat very well. No aphasia or dysarthria. Attention, concentration and fund of knowledge is adequate. On cranial nerve examination, pupils are equal, round and reacting to light, visual craig are full on confrontation, with no neglect on double simultaneous stimulation. Extraocular muscles are intact with no nystagmus. Face is symmetric, tongue protrudes to the midline. Palatal elevation and sensation normal, hearing and shoulder shrug normal, facial sensation normal. Patient is evidence of tongue bite katrina on the right. On muscle strength testing, there is no pronator drift and the strength is normal in arms and legs distally and proximally. Deep tendon reflexes are symmetric 2+ all over and plantars downgoing bilaterally. Sensory to touch is equal with no neglect on double simultaneous stimulation. Cerebellar function showed no ataxia for [id number] testing. No dysdiadochokinesia. No ataxia for [id number] testing on either side. Tone and bulk of muscles normal. Gait deferred.. On general examination, there is no carotid bruit or murmur, S1-S2 audible. Chest is clear on consultation. Abdomen is soft nontender. No organomegaly, babs wel sounds present. Peripheral pulses are present. No edema. Results - Laboratory Findings CBC and BMP: 08/21/22 18:50 08/21/22 18:50 Abnormal Lab Findings: Abnormal Labs 08/21/22 18:50 Glucose 103 H Assessment and Plan Assessment: * Breakthrough seizure, in patient with history of epilepsy. * History of epilepsy following encephalitis in 2010. * Marijuana use Plan: * Patient is currently on Keppra 1000 mg twice a day. * With her breakthrough seizure, we will increase dose of Keppra to 1500 mg twice a day. * Patient recommended to follow-up with her neurologist within 1-2 weeks for further management. If she has side effects, then would suggest switching to a different AED. * Patient informed of [place] state law of no driving unless seizure free for 6 months, climbing ladders, operating dangerous machinery or unsupervised swimming. * Patient informed of the importance of complete compliance with the seizure medication. * Neurologically clear for discharge. Thank your for the consult.
== END 2022-08-22 12:22 | disposition home or self-care (01) ==
LOC: EC 17:49 → 6NMEDSUR 20:32
PROVIDERS: ADMIT Internal Medicine; ATTEND Internal Medicine
DX: G40.909 Epilepsy, unspecified, not intractable, without status epilepticus (principal); F41.9 Anxiety disorder, unspecified; Z82.49 Family history of ischemic heart disease and other diseases of the circulatory system; Z79.899 Other long term (current) drug therapy
CPT/HCPCS: 96361; 96374; 96375; 99285; 36415; 93005; 80053; 83735; 85025; 72125; 70450; G0378 ×2; J2060; J1953; J1170

== ENCOUNTER 2022-08-28 07:35 | Day surgery (SDC) | payer OTHER ==
[2022-08-26 10:59] VITALS: BMI 24.1
--- NOTE | 2022-08-27 22:20 | P.HPOB ---
History of Present Illness H&P Date: 08/27/22 Chief Complaint: Family planning This is a 31 y.o. female gravda 3, para 2, who presents for laparoscopic bilateral tubal ligation via fulgaration for permanent sterilization. She is currently using Nuvaring. OB Hx: . History of 2 vaginal deliveries. 1 termination. Learning Disabilities Resource Teacher Hx: History of chlamydia treated. Social Hx: . Works at [employer]. Review of Systems Constitutional: Denies chills, Denies fever Eyes: denies blurred vision, denies pain Ears, nose, mouth and throat: Denies headache, Denies sore throat Cardiovascular: Denies chest pain, Denies shortness of breath Respiratory: Denies cough Gastrointestinal: Denies abdominal pain, Denies diarrhea, Denies nausea, Denies vomiting Genitourinary: Reports dysmenorrhea Menstruation: Reports menses 1-7 days Musculoskeletal: Denies myalgias Integumentary: Denies pruritus, Denies rash Neurological: Reports seizures, Denies numbness, Denies weakness Psychiatric: Denies anxiety, Denies depression Past Medical History Past Medical History: Seizure Disorder Additional Past Medical History / Comment(s): RECENT OBV 08/21/22-08/22/22 FOR SEIZURE. ENCEPHELITIS History of Any Multi-Drug Resistant Organisms: None Reported Past Surgical History: No Surgical Hx Reported Additional Past Surgical History / Comment(s): TERMINATION OF Past Anesthesia/Blood Transfusion Reactions: No Reported Reaction Past Psychological History: No Psychological Hx Reported Smoking Status: Never smoker Past Alcohol Use History: None Reported Past Drug Use History: Marijuana - Past Family History Mother Family Medical History: Hypertension Medications and Allergies Home Medications Medication Instructions Recorded Confirmed Type Etonogestrel/Ethinyl Estradiol 1 ring VAGINAL DIRECTED 01/11/22 08/26/22 History [Nuvaring Vaginal Ring] levETIRAcetam [Keppra] 1,500 mg PO BID 30 Days #180 tab 08/22/22 08/26/22 Rx Allergies Allergy/AdvReac Type Severity Reaction Status Date / Time No Known Allergies Allergy Verified 08/26/22 10:47 Exam Osteopathic Statement: *. No significant issues noted on an osteopathic structural exam other than those noted in the History and Physical/Consult. HEENT: within normal limits Heart: regular rate and rhythm Lungs: clear to auscultation bilaterally Abdomen: soft, non-tender Pelvic: uterus retroverted, non-tender, no adnexal masses or tenderness Extremities: neg. Benito's Assessment and Plan (1) Family planning Current Visit: No Status: Acute Code(s): Z30.09 - ENCOUNTER FOR OTH GENERAL CNSL AND ADVICE ON CONTRACEPTION SNOMED Code(s): 436840975 Plan: Proceed with laparoscopic bilateral tubal ligation via fulgaration. I have discussed the risks, benefits, and alternative therapies for the above- mentioned procedure and for both sedation/anesthesia as well as necessary blood products administration, if indicated, as they pertain to this patient. The patient has indicated her understanding and acceptance of the risks and procedures discussed.
[~2022-08-28 07:35] MED LIST: DEXAMETHASONE SOD PHOSPHATE 4 MG/ML 1 ML VIAL IV ONE; HYDROmorphone 0.5 MG/0.5 ML SYRINGE IVP PRN; LACTATED RINGERS 1,000 ML IV SCH; ONDANSETRON 4 MG/2 ML VIAL IVP ONE; Pre Op ABX Message 1 EACH MISC MISCELLANE ONE
[2022-08-28 08:09] VITALS: RESP 16
[2022-08-28] MEDS ORDERED: LIDOCAINE 1% (10MG/ML) FOR IV START INTRADERMA ONE (08:10)
[2022-08-28] MEDS ORDERED: MIDAZOLAM 2 MG/2 ML VIAL IV ONE (08:27)
[2022-08-28] MEDS ORDERED: GLYCOPYRROLATE 0.2 MG/ML 2 ML VIAL ONE (09:07)
[2022-08-28] MEDS ORDERED: KETOROLAC 15 MG/ML 1 ML VIAL ONE (09:07)
[2022-08-28] MEDS ORDERED: SUCCINYLCHOLINE CHLORIDE 200 MG/10 ML VIAL IV ONE (09:07)
[2022-08-28] MEDS ORDERED: PROPOFOL 10 MG/ML 20 ML VIAL IV ONE (09:07)
[2022-08-28] MEDS ORDERED: fentaNYL (PF) 50 MCG/ML 2 ML AMP ONE (09:07)
[2022-08-28] MEDS ORDERED: LIDOCAINE 2% INJ 20 MG/ML (2 ML VIAL) ONE (09:07)
[2022-08-28] MEDS ORDERED: NEOSTIGMINE 1 MG/ML 10 ML VIAL ONE (09:07)
[2022-08-28] MEDS ORDERED: ROCURONIUM 10 MG/ML (5 ML VIAL) IV ONE (09:07)
[2022-08-28] MEDS ORDERED: BUPIVACAINE (PF) 0.25% 30 ML VIAL SQ ONE ×2 (09:38)
[2022-08-28] MEDS ORDERED: LACTATED RINGERS 1,000 ML IV ONE (09:49)
[2022-08-28 10:06] VITALS: TEMP 97.4
--- NOTE | 2022-08-28 10:09 | P.OP ---
Date of Procedure: 08/28/22 Preoperative Diagnosis: Family planning Postoperative Diagnosis: Same Procedure(s) Performed: Laparoscopic bilateral tubal ligation via fulguration Anesthesia: OSEAS Surgeon: Kristen Abebe Estimated Blood Loss (ml): 10 Pathology: none sent Condition: stable Disposition: same day Indications for Procedure: This is a 31 y.o. female gravda 3, para 2, who presents for laparoscopic bilateral tubal ligation via fulgaration for permanent sterilization. She is currently using Nuvaring. Operative Findings: Uterus is retroverted and sounded to 9 cm. Normal tubes and ovaries are noted. Appendix is visualized and appears normal. Gallbladder is visualized and appears slightly distended. Description of Procedure: The patient is taken to the operating room where she is placed in the dorsal lithotomy position. She is prepped and draped in the normal sterile fashion. Examination is performed under anesthesia. Uterus is found to be in a retroverted position. No adnexal masses were palpated. Next a bivalve speculum was placed in the patient's vagina. A single-tooth tenaculum was used to grasp the anterior lip of the cervix. The uterus was sounded to 9 cm. The kroner uterine manipulator was then inserted through the cervix and the balloon was inflated. The single-tooth tenaculum is removed speculum was removed gloves were changed and attention was turned to the abdomen. A small stab incision was made with a scalpel in the supraumbilical fold. A 5 mm disposable bladeless trocar was then inserted into the peritoneal cavity under direct visualization. Once inside, pneumoperitoneum was achieved with CO2 gas. The insert was removed and the camera was placed. Intraperitoneal placement was confirmed. No bleeding was noted. Next the patient was placed in Trendelenburg position. A small stab incision was made suprapubically and a 5 mm disposable bladeless trocar was inserted into the peritoneal cavity under direct visualization. Once inside pelvic contents were inspected. Next a bipolar Kleppinger instrument was placed through the inferior trocar and the midportion of each tube was brought away from other structures and completely fulgurated on approximate 2-3 cm segment of each tube. Excellent hemostasis was noted. Pictures were taken. Pneumoperitoneum was released after the inferior trocar was removed under direct visualization. The upper trocar was then removed. The skin incisions were then closed with 4-0 Vicryl suture in a subcuticular fashion. Incisions were then injected with quarter percent Marcaine. Approximately 7 mL were used. Next the kroner uterine manipulator was removed. Minimal bleeding was noted. All sponge and needle counts are correct. The patient is then taken to recovery room in stable condition.
[2022-08-28 11:29] VITALS: BP 115/74; PULSE 55
== END 2022-08-28 11:31 | disposition home or self-care (01) ==
LOC: OR 07:35
PROVIDERS: ATTEND Obstetrics & Gynecology
DX: Z30.2 Encounter for sterilization (principal); G40.909 Epilepsy, unspecified, not intractable, without status epilepticus; Z82.49 Family history of ischemic heart disease and other diseases of the circulatory system; Z79.3 Long term (current) use of hormonal contraceptives; Z98.890 Other specified postprocedural states
CPT/HCPCS: 81025; 58670; J2250; J0330; J1100; J2710; J2405; J3010; J1885; J2704; J2001